=== PATIENT | female | born 1980 | race Caucasian/White ===

== ENCOUNTER 2016-11-06 19:54 | Emergency (ER) | payer BC ==
--- NOTE | 2016-11-06 21:18 | RAD ---
INDICATION: Finger injury. 3 views of left index finger demonstrates no fracture. No other bone or joint abnormality is noted. IMPRESSION: No fracture of the left index finger is noted.
[2016-11-06 23:04] VITALS: BP 129/94
--- NOTE | 2016-11-13 14:14 | ED ---
Woodrow Kang Anna, scribed for Emily Carver MD on 11/06/16 at 2030 . Upper Extremity Pain - HPI Summary HPI Summary: Patient is a 35 y/o female BIBA to [facility] presenting with the sudden onset of constant left finger pain that began this evening after sustaining a crush injury while trying to change her tire. She describes the severity of the pain as 8/10. She denies other injuries. She denies medical problems other than a Hx of asthma. Patient medications were reviewed this visit. - History of Current Complaint Chief Complaint: EDExtremityUpper Stated Complaint: LEFT POINTER FINGER INJURY Time Seen by Provider: 11/06/16 20:19 Hx Obtained From: Patient, Family/Change House Attendant - accompanied by friend Onset/Duration: Started Hours Ago, Still Present Severity Initially: Moderate Severity Currently: Moderate Pain Location: Finger - Allergies/Home Medications Allergies/Adverse Reactions: Allergies Allergy/AdvReac Type Severity Reaction Status Date / Time No Known Allergies Allergy Verified 11/06/16 20:16 PMH/Surg Hx/FS Hx/Imm Hx Cardiovascular History: Denies: Hx Hypertension Respiratory History: Reports: Hx Asthma EENT History: Denies: Hx Deafness Infectious Disease History: No Infectious Disease History: Denies: Traveled Outside the [place] in Last 30 Days - Family History Known Family History: Positive: Cardiac Disease - Hx in father, Hypertension, Diabetes - Hx in mother and maternal grandmother , Other - [place] - Social History Alcohol Use: Occasionally Substance Use Type: Reports: None Hx Tobacco Use: No Smoking Status (MU): Never Smoked Tobacco Review of Systems Positive: Other - finger pain Skin: Other Psychological: Normal All Other Systems Reviewed And Are Negative: Yes Physical Exam Triage Information Reviewed: Yes Vital Signs On Initial Exam: Initial Vitals Temp Pulse Resp BP Pulse Ox 97.8 F 106 18 121/79 98 11/06/16 20:05 11/06/16 20:05 11/06/16 20:05 11/06/16 20:05 11/06/16 20:05 Vital Signs Reviewed: Yes Appearance: Positive: Well-Appearing, No Pain Distress, Well-Nourished Skin: Positive: Warm, Skin Color Reflects Adequate Perfusion, Dry Head/Face: Positive: Normal Head/Face Inspection Eyes: Positive: EOMI, MARLY, Conjunctiva Clear ENT: Positive: Pharynx normal, TMs normal Neck: Positive: Supple, Nontender Respiratory/Lung Sounds: Positive: Clear to Auscultation, Breath Sounds Present. Negative: Rales, Rhonchi, Wheezes Cardiovascular: Positive: RRR, S1, S2. Negative: Murmur, Rub, Other - no gallop Abdomen Description: Positive: Nontender, Soft. Negative: Distended, Guarding, Other: - no rebound Bowel Sounds: Positive: Present Musculoskeletal: Positive: Other - On the left second digit, there is a small laceration on the dorsum proximal carpal bone with ecchymosis and subungal hematoma of the nailbed. Normal flexion and extension against resistance. Neurovascularly intact. Neurological: Positive: Normal, Sensory/Motor Intact, Alert, Oriented to Person Place, Time Psychiatric: Positive: Affect/Mood Appropriate - Cory Coma Scale Coma Scale Total: 15 Procedures - Procedure Summary Procedure Summary: digit block for left 2nd digit with 1.5 cc of 1%lido w/o epi. Pt tolerated well. No complications - Splinting Location: left second digit Pre-Made Type: metal Splint: volar Pre-Proc Neuro Vasc Exam: normal Post-Proc Neuro Vasc Exam: normal - Laceration/Wound Repair 1 Location: upper extremity - left 2nd digit dorsally Description: Linear Anesthesia: Local Length, Depth and Shape: 1.5cm, superficial Betadine Prep?: No - alcohol prep Irrigated w/ Saline (ccs): 500 Laceration/Wound Explored: clean Closure: Single Layer Suture Type: Nylon Number of Sutures: 3 Layer Closure?: No Diagnostics - Vital Signs Vital Signs Temp Pulse Resp BP Pulse Ox 11/06/16 20:15 97.8 F 101 20 139/98 99 11/06/16 20:05 97.8 F 106 18 121/79 98 - Laboratory Lab Statement: Any lab studies that have been ordered have been reviewed, and results considered in the medical decision making process. - Radiology Finger XR Xray Interpretation: No Acute Changes Radiology Interpretation Completed By: Radiologist - IMPRESSION: No fracture of the left index finger is noted. Course/Dx - Course Assessment/Plan: Patient is a 35 y/o female BIBA to [facility] presenting with the sudden onset of constant left finger pain that began this evening. Finger XR reveals no fracture of the left index finger. - Diagnoses Provider Diagnoses: Crush injury, Laceration Discharge - Discharge Plan Condition: Stable Disposition: HOME Discharge Disposition Comment: Return in 10 days for suture removal Patient Education Materials: Crush Injury (ED), Laceration (ED) Referrals: [facility] [Outside] Mariposa Saavedra MD [Medical Doctor] - No Primary Care Phys,NOPCP [Primary Care Provider] - Additional Instructions: Follow up with Orthopedics this week. Call Dr. Saavedra's office at [phone]. Return to the Emergency Department for new or worsening symptoms. The documentation as recorded by the Woodrow denny Anna accurately reflects the service I personally performed and the decisions made by Mehul herbert Afoma Frances, MD.
== END 2016-11-06 23:03 | disposition home or self-care (01) ==
LOC: ED 19:54
DX: S67.191A Crushing injury of left index finger, initial encounter (principal); S61.211A Laceration without foreign body of left index finger without damage to nail, initial encounter; W23.0XXA Caught, crushed, jammed, or pinched between moving objects, initial encounter; Y93.9 Activity, unspecified; Y92.9 Unspecified place or not applicable
CPT/HCPCS: 12001; 73140; 99282

== ENCOUNTER 2017-10-19 16:32 | Emergency (ER) | payer BC ==
[2017-10-19 16:42] VITALS: BP 143/94
--- NOTE | 2017-10-19 17:00 | UC ---
Respiratory Complaint HPI - HPI Summary HPI Summary: PT HERE REQUESTING TAMIFLU FOR INFLUENZA PROPHYLAXIS. PARTNER SWABBED POSITIVE TODAY FOR INFLUENZA TYPE B. PATIENT IS CURRENTLY ASYMPTOMATIC. UP-TO-DATE FLU SHOT THIS SEASON. - History of Current Complaint Chief Complaint: UCGeneralIllness Stated Complaint: FLU-LIKE SYMPTOMS Time Seen by Provider: 10/19/17 16:34 Hx Obtained From: Patient Severity Currently: None Pain Intensity: 0 Pain Scale Used: 0-10 Numeric Aggravating Factors: Nothing Alleviating Factors: Nothing Associated Signs And Symptoms: Positive: Negative - Allergies/Home Medications Allergies/Adverse Reactions: Allergies Allergy/AdvReac Type Severity Reaction Status Date / Time No Known Allergies Allergy Verified 10/19/17 16:42 Home Medications: Home Medications Fluticasone-Salmeterol 250-50* [Advair Diskus 250-50*] 1 puff PO BID 10/19/17 [ History Confirmed 10/19/17] Loratadine 10 mg PO DAILY 10/19/17 [History Confirmed 10/19/17] Montelukast Sodium TAB* [Singulair 10 MG TAB*] 10 mg PO DAILY 10/19/17 [History Confirmed 10/19/17] PMH/Surg Hx/FS Hx/Imm Hx Respiratory History: Asthma - Surgical History Surgical History: None - Family History Known Family History: Positive: Cardiac Disease - Hx in father, Hypertension, Diabetes - Hx in mother and maternal grandmother , Other - [place] - Social History Alcohol Use: Occasionally Substance Use Type: None Smoking Status (MU): Never Smoked Tobacco Review of Systems Constitutional: Negative Respiratory: Negative Cardiovascular: Negative Gastrointestinal: Negative All Other Systems Reviewed And Are Negative: Yes Physical Exam Triage Information Reviewed: Yes Appearance: Well-Appearing, No Pain Distress, Well-Nourished Vital Signs: Initial Vital Signs Temp 97.9 F 10/19/17 16:38 Pulse 84 10/19/17 16:38 Resp 18 10/19/17 16:38 BP 143/94 10/19/17 16:38 Pulse Ox 100 10/19/17 16:38 Vital Signs Reviewed: Yes Eyes: Positive: Conjunctiva Clear - Dipak ENT: Positive: Hearing grossly normal, Pharynx normal, TMs normal Neck: Positive: Supple, Nontender, No Lymphadenopathy Respiratory Exam: Normal Cardiovascular Exam: Normal Abdomen Description: Positive: Soft Musculoskeletal: Positive: No Edema Neurological: Positive: Alert Psychological: Positive: Age Appropriate Behavior Skin: Negative: rashes UC Diagnostic Evaluation - Laboratory O2 Sat by Pulse Oximetry: 100 Respiratory Course/Dx - Differential Dx/Diagnosis Provider Diagnoses: INFLUENZA PROPHYLAXIS Discharge - Sign-Out/Discharge Documenting (check all that apply): Discharge/Admit/Transfer - Discharge Plan Condition: Stable Disposition: HOME Prescriptions: Oseltamivir CAP* [Tamiflu CAP*] 75 mg PO DAILY #10 cap Patient Education Materials: Influenza (ED) Referrals: No Primary Care Phys,NOPCP [Primary Care Provider] - Additional Instructions: TAMIFLU 75 MG DAILY FOR 10 DAYS FOR INFLUENZA PROPHYLAXIS. CALL THE NUMBER BELOW FOR ASSISTANCE IN ESTABLISHING WITH A PCP An additional resource available to assist in finding the appropriate physician for your health care needs is the [facility] ([facility]). You may contact them by calling [phone]. - Billing Disposition and Condition Condition: STABLE Disposition: HOME
== END 2017-10-19 17:03 | disposition home or self-care (01) ==
LOC: UCEAST 16:32
DX: Z20.828 Contact with and (suspected) exposure to other viral communicable diseases (principal); J45.909 Unspecified asthma, uncomplicated
CPT/HCPCS: 99212; G0463